=== PATIENT | female | born 1945 | race African-American/Black ===

== ENCOUNTER 2020-09-17 17:44 | Emergency (ER) | payer MEDICARE, OTHER ==
[~2020-09-17 17:44] MED LIST: ADVIL200 M1 PO; ALTOPREV20 MG PO; CELEXA20 MG PO; CHANTIX0.5 MG PO; DUONEB 2.5-0.5M1 AMP NEB; HCTZ25 MG PO; HYDROCODON-ACE1 EAC2 PO; INDERAL LA80 MG PO; LEVAQUIN500 MG PO; LIPITOR40 MG PO; MOBIC15 MG PO; MYSOLINE50 MG PO; NEBULIZER UNIT NEB; NEURONTIN100 MG PO; NEURONTIN300 MG PO; NORCO 7.5-3251 EACH PO; NORVASC10 MG PO; PREDNISONE 20MG20 MG PO; PREDNISONE5 MG PO; ZPAK PO
[2020-09-17 20:06] LABS: CORONAVIRUS 2019 SARS-COV-2 POSITIVE (NEGATIVE); INFLUENZA A NAA NEGATIVE (NEGATIVE)
[2020-09-17] MEDS ORDERED: PREDNISONE 20MG20 MG PO (20:19)
[2020-09-17] MEDS ORDERED: ZPAK PO (20:19)
[2020-09-17] MEDS ORDERED: VENTOLIN HFA IN18 GM INH (20:19)
[2020-09-24] MEDS ORDERED: HYDROCODON-ACE1 EAC2 PO (12:58)
[2020-11-20] MEDS ORDERED: NEURONTIN300 MG PO (10:49)
[2020-11-20] MEDS ORDERED: HYDROCODON-ACE1 EAC2 PO (18:21)
== END 2020-09-17 20:37 | disposition home or self-care (01) ==
LOC: FER 17:44
PROVIDERS: Nurse Practitioner Family
DX: U07.1 COVID-19 (principal); J44.9 Chronic obstructive pulmonary disease, unspecified; I10 Essential (primary) hypertension; Z95.5 Presence of coronary angioplasty implant and graft
CPT/HCPCS: 71045; J1100; U0002

== ENCOUNTER 2020-09-22 12:11 | Emergency (ER) | payer MEDICARE, OTHER ==
[~2020-09-22 12:11] MED LIST changes: +VENTOLIN HFA IN18 GM INH
[2020-09-22 13:28] LABS: BASOPHIL 0.3 % (0-2); EOSINOPHIL 0 % (0-7); HCT 38.9 % (37.0-47.0); HGB 12.6 g/dl (12.5-16.0); LYMPHOCYTE 7.4 % (15-48); MCH 30.7 pg (25.0-31.0); MCHC 32.4 g/dL (32.0-36.0); MCV 94.6 fL (78.0-100.0); MONOCYTE 5.4 % (0-12); MPV 12.5 fL (6.0-9.5); NEUTROPHIL 86.5 % (41-80); NRBC 0; PLT 208 K/uL (150-400); RBC 4.11 M/uL (4.20-5.40); RDW 16.7 % (11.5-14.0); WBC 7.5 K/uL (4.0-10.5)
[2020-09-22 13:46] LABS: BUN/CREAT RATIO (CALC) 15.3 RATIO; CREATININE 0.85 mg/dL (0.51-0.95)
[2020-09-22] MEDS ORDERED: ONDANSETRON ODT4 MG PO (13:55)
[2020-09-22 14:00] LABS: POTASSIUM 3.9 mmol/L (3.5-5.1)
[2020-09-24] MEDS ORDERED: HYDROCODON-ACE1 EAC2 PO (12:58)
[2020-11-20] MEDS ORDERED: NEURONTIN300 MG PO (10:49)
[2020-11-20] MEDS ORDERED: HYDROCODON-ACE1 EAC2 PO (18:21)
== END 2020-09-22 14:10 | disposition home or self-care (01) ==
LOC: FER 12:11
PROVIDERS: Emergency Medicine
DX: U07.1 COVID-19 (principal); J44.9 Chronic obstructive pulmonary disease, unspecified
CPT/HCPCS: 36415; 71045; 80048; 85025

== ENCOUNTER 2020-12-30 22:21 | Emergency (ER) | payer MEDICARE, OTHER ==
[~2020-12-30 22:21] MED LIST changes: +ONDANSETRON ODT4 MG PO
[2020-12-30 22:52] LABS: BASOPHIL 0.2 % (0-2); HCT 38.2 % (37.0-47.0); HGB 11.6 g/dl (12.5-16.0); LYMPHOCYTE 24.3 % (15-48); MCH 31.1 pg (25.0-31.0); MCHC 30.4 g/dL (32.0-36.0); MCV 102.4 fL (78.0-100.0); MPV 11.8 fL (6.0-9.5); NEUTROPHIL 66.2 % (41-80); NRBC 0.6; PLT 147 K/uL (150-400); RBC 3.73 M/uL (4.20-5.40); RDW 17.2 % (11.5-14.0); WBC 8.2 K/uL (4.0-10.5)
[2020-12-30 23:03] LABS: INR 1.41 (0.9-1.2); PROTHROMBIN TIME 16.4 SECONDS (11.4-13.6)
[2020-12-30 23:15] LABS: ALBUMIN 3.2 g/dL (3.4-5.0); BILIRUBIN - TOTAL 0.7 mg/dL (0.2-1.0); BUN/CREAT RATIO (CALC) 12.2 RATIO; CREATININE 1.15 mg/dL (0.51-0.95); GLOBULIN (CALCULATION) 3.2 g/dL; POTASSIUM 5.3 mmol/L (3.5-5.1); TOTAL PROTEIN 6.4 g/dL (6.4-8.2)
[2020-12-30 23:24] LABS: LACTIC ACID 11.6 mmol/L (0.4-1.9)
[2020-12-30 23:44] LABS: CORONAVIRUS 2019 SARS-COV-2 NEGATIVE (NEGATIVE); INFLUENZA A NAA NEGATIVE (NEGATIVE)
[2020-12-31 01:16] LABS: BILIRUBIN NEGATIVE (NEGATIVE); BLOOD 1+ Ery/uL (NEGATIVE); CLARITY CLEAR (CLEAR); COLOR YELLOW (YELLOW); GLUCOSE (U) NORMAL (NORMAL); LEUKOCYTES NEGATIVE Leu/uL (NEGATIVE); NITRITE NEGATIVE (NEGATIVE); PROTEIN 2+ mg/dL (NEGATIVE); SPECIFIC GRAVITY 1.015 (1.001-1.030); UROBILINOGEN 0.2 mg/dL (0.2-1.0); pH 7.5 (5.0-9.0)
[2020-12-31 01:21] LABS: AMPHETAMINES NEGATIVE (NEGATIVE); BARBITURATES POSITIVE (NEGATIVE); ECSTASY (MDMA) NEGATIVE (NEGATIVE); MARIJUANA (THC) NEGATIVE (NEGATIVE); METHADONE NEGATIVE (NEGATIVE); OPIATES POSITIVE (NEGATIVE); OXYCODONE NEGATIVE (NEGATIVE)
[2020-12-31 01:23] LABS: BACTERIA 1+; MUCOUS TRACE
== END 2020-12-31 03:59 | disposition other institution (70) ==
LOC: FER 22:21
PROVIDERS: Emergency Medicine
DX: I46.9 Cardiac arrest, cause unspecified (principal); I48.91 Unspecified atrial fibrillation; I11.0 Hypertensive heart disease with heart failure; I50.1 Left ventricular failure, unspecified; Z20.822 Contact with and (suspected) exposure to COVID-19
CPT/HCPCS: 36415; 70450; 71045; 80053; 80305; 81001; 83605; 83880; 84484; 85025; 85610; 87040; 87077; 87186; 92950; 96365; 96366; 96367; J0330; J2543; U0002